=== PATIENT | female | born 1950 | race Caucasian/White ===

== ENCOUNTER 2018-12-12 08:39 | Day surgery (SDC) | payer MEDICARE, BC ==
[2018-12-12] MEDS ORDERED: PROPOFOL 10 MG/ML VIAL IV ONE (08:40)
[2018-12-12] MEDS ORDERED: LIDOCAINE 2% MDV (20MG/ML) 20ML VIAL IV ONE (08:40)
--- NOTE | 2018-12-14 09:31 | Operative Note ---
DATE OF SURGERY: 12/12/2018 SURGEON: Roberto Carbone D.O. REFERRING PHYSICIAN: Cherise Reyes N.P. OPERATION: COLONOSCOPY TO THE CECUM WITH COLD BIOPSY FORCEPS POLYPECTOMY x2. INDICATION: Prior history of adenomatous polyps. The patient returns at this time for surveillance after 7 years from her last examination in 2011. ANESTHESIA: Intravenous sedation was administered by the Department of Anesthesiology and included Diprivan titrated to effect. PROCEDURE: Following informed consent from this alert individual, including a discussion of the risks and benefits of the procedure and opportunity for the patient to ask questions, the patient was in the left lateral decubitus position. Digital rectal examination was performed. No abnormalities were noted. Following this, the Olympus PCF 180 video colonoscope was inserted in the rectum without resistance. The rectal mucosa had a normal appearance with normal folds and distensibility. The colonoscope was advanced up through the bowel to the level of the cecum without much difficulty. There were a few scattered diverticula noted in the sigmoid colon. The cecum was well defined by noting the appendiceal orifice and the ileocecal valve. Overall, the colon preparation overall was good. From the base of the cecum, the colonoscope was then slowly withdrawn. There were two 3 to 4 mm polyps noted in the ascending colon, each removed with application of cold biopsy forceps. No other changes were noted until the sigmoid colonoscopy was reached, where again, diverticulosis was apparent. The rectum was normal, but retroflexion revealed small internal hemorrhoids. The endoscope was straightened and removed. The patient tolerated the procedure well and was returned to the recovery area in stable condition. IMPRESSION: 1. Two 3 to 4 mm ascending colon polyps, removed with cold biopsy forceps. 2. Sigmoid diverticulosis. 3. Small internal hemorrhoids. RECOMMENDATIONS: The patient was advised that she should have recheck colonoscopy in 5 years time pending pathology. She will follow up with her primary caregiver, who is Cherise Reyes, Nurse Practitioner. As always, thank you for allowing me to participate in the care of your patient. CC: HONORIO Marcus
== END 2018-12-12 10:28 | disposition home or self-care (01) ==
LOC: HOP 08:39
PROVIDERS: ATTEND Internal Medicine Gastroenterology
DX: Z12.11 Encounter for screening for malignant neoplasm of colon (principal); D12.2 Benign neoplasm of ascending colon; K57.30 Diverticulosis of large intestine without perforation or abscess without bleeding; Z86.010 Personal history of colon polyps; I10 Essential (primary) hypertension